=== PATIENT | female | born 1985 | race Caucasian/White ===

== ENCOUNTER 2018-12-05 23:59 | Emergency (ER) | payer SELFPAY ==
[~2018-12-05] VITALS: Ht 162.6 cm; Wt 84.4 kg
[2018-12-06 00:10] VITALS: BP 118/77
--- NOTE | 2018-12-06 00:12 | NUR ---
PT TO [facility].
--- NOTE | 2018-12-06 02:05 | NUR ---
PT TO ER BED 2
--- NOTE | 2018-12-06 02:13 | NUR ---
PT C/O LOWER ABD PAIN THAT RADIATES TO RT FLANK. FREQUENT PAINFUL URINATION X1 DAY. PT DENIES FEVER. DENIES N/V/D. ABD SOFT, ROUND, NONTENDER. VSS. LMP 11/27/18. PT LAYING IN BED WITH SIGNIFICANT OTHER AT BEDSIDE. MEDHX: DENIES ALLERGIES: DENIES
[2018-12-06 02:35] VITALS: BP 118/77
--- NOTE | 2018-12-06 02:35 | NUR ---
PATIENT LEFT WITHOUT BEING SEEN BY DR. GROVE. NO FURTHER CARE PROVIDED FOR PATIENT.
== END 2018-12-06 02:35 | disposition left against medical advice (07) ==
LOC: MED 23:59
DX: R30.9 Painful micturition, unspecified (principal); R35.0 Frequency of micturition; R10.30 Lower abdominal pain, unspecified; Z53.21 Procedure and treatment not carried out due to patient leaving prior to being seen by health care provider
CPT/HCPCS: 81002; 81025